=== PATIENT | female | born 1980 | race Caucasian/White ===

== ENCOUNTER 2017-01-18 17:25 | Emergency (ER) | payer MEDICAID ==
[~2017-01-18 17:25] MED LIST: SERT100T PO
[2017-01-18] MEDS ORDERED: IBUPROFEN 600 MG TABLET PO ONE (19:02)
== END 2017-01-18 19:13 | disposition home or self-care (01) ==
LOC: ER 17:30
DX: S93.401A Sprain of unspecified ligament of right ankle, initial encounter (principal); Z88.0 Allergy status to penicillin; Z90.89 Acquired absence of other organs; Z88.5 Allergy status to narcotic agent; W22.8XXA Striking against or struck by other objects, initial encounter; Y93.89 Activity, other specified; Y92.89 Other specified places as the place of occurrence of the external cause; Y99.8 Other external cause status
CPT/HCPCS: 73610-TC

== ENCOUNTER 2017-08-19 17:41 | Emergency (ER) | payer BC ==
[~2017-08-19] VITALS: Ht 154.9 cm; Wt 59.0 kg
--- NOTE | 2017-08-19 19:35 | NUR ---
PT TO ER BED
--- NOTE | 2017-08-19 19:43 | NUR ---
URINE SAMPLE OBTAINED AND SENT TO LAB.
[2017-08-19 20:06] LABS: APPEARANCE,URINE Clear (CLEAR); BILIRUBIN,URINE Negative (NEGATIVE); BLOOD, URINE Moderate Ery/uL (NEGATIVE); COLOR,URINE Yellow (YELLOW); KETONES,URINE Negative (NEGATIVE); LEUKOCYTE ESTERASE ,URINE Negative (NEGATIVE); NITRITE, URINE Negative (NEGATIVE); PH,URINE 7.5 (5.0-8.0); PROTEIN,URINE Negative (NEGATIVE); UGLUCOSE Negative (NEGATIVE); UROBILINOGEN,URINE 0.2 EU/dL (0.2)
[2017-08-19 20:29] LABS: BACTERIA,URINE Rare /HPF (None Seen); SQUAMOUS EPITHELIAL CELL,UR Few /HPF (None Seen); WBC,URINE 0-2 /HPF (0-3)
[2017-08-19] MEDS ORDERED: IV NS 0.9% 1,000 ML BAG IV ONE (20:30)
[2017-08-19] MEDS ORDERED: KETOROLAC TROMETHAMINE INJ 30 MG/ML VIAL IV ONE (20:30)
--- NOTE | 2017-08-19 20:36 | NUR ---
PT IS IN CT
[2017-08-19 21:06] LABS: BASOPHILS # (AUTO) 0.1 /CMM (0.0-0.2); EOSINOPHILS # (AUTO) 0.8 /CMM (0.0-0.7); HEMATOCRIT 34 % (33-45); HEMOGLOBIN 11.6 g/dL (11.5-14.8); LYMPHOCYTES # (AUTO) 2.3 /CMM (0.8-4.8); LYMPHOCYTES % (AUTO) 37.5 % (20.0-44.0); MEAN CORPUSCULAR HEMOGLOBIN 27 PG (26.0-33.0); MEAN CORPUSCULAR HGB CONC 34 g/dl (31.0-36.0); MEAN CORPUSCULAR VOLUME 80 fL (82-100); MONOCYTES # (AUTO) 0.5 /CMM (0.1-1.30); MONOCYTES % (AUTO) 7.8 % (2.0-12.0); NEUTROPHILS # (AUTO) 2.4 /CMM (1.8-8.9); NEUTROPHILS % (AUTO) 39.7 % (43.0-81.0); PLATELET COUNT (AUTO) 253 /CMM (150-450); RDW COEFFICIENT OF VARIATION 13.4 (11.5-15.0); RED BLOOD CELL COUNT(AUTO) 4.27 MIL/uL (4.0-5.2); WHITE BLOOD COUNT (AUTO) 6.1 K/uL (4.3-11.0)
[2017-08-19] MEDS ORDERED: KETOROLAC TROMETHAMINE 15 MG/ML VIAL ONE (21:09)
[2017-08-19 21:17] LABS: CALCIUM, SERUM 8.8 mg/dL (8.5-10.1); CREATININE 0.8 mg/dL (0.6-1.3); POTASSIUM 3.9 mmol/L (3.5-5.1)
[2017-08-19 21:23] LABS: ALBUMIN 3.5 g/dL (3.4-5.0); BILIRUBIN,TOTAL 0.2 mg/dL (0.2-1.0); TOTAL PROTEIN, SERUM 7.5 g/dL (6.4-8.2)
--- NOTE | 2017-08-19 22:44 | NUR ---
IV removed. Catheter intact and site benign. Pressure and 4x4 applied to site. No bleeding noted.Patient discharged to home in stable condition. Written and verbal after care instructions given. Patient verbalizes understanding of instruction AND RX. PT AMBULATED OUT WITH A STEADY GAIT. VSS.
[2017-08-19 22:45] VITALS: BP 105/59
== END 2017-08-19 22:46 | disposition home or self-care (01) ==
LOC: ER 17:42
DX: R10.32 Left lower quadrant pain (principal); Z88.6 Allergy status to analgesic agent; Z88.5 Allergy status to narcotic agent; Z88.0 Allergy status to penicillin; Z90.89 Acquired absence of other organs
CPT/HCPCS: 36415; 74176; 80053; 81001; 83690; 85025; 96361; 96374; 99285; A4606; J1885; J7030; Z7610; 81000-TC

== ENCOUNTER 2018-05-11 14:16 | Emergency (ER) | payer BC ==
[~2018-05-11] VITALS: Ht 160 cm; Wt 59.0 kg
--- NOTE | 2018-05-11 18:00 | NUR ---
BIB SELF, WITH C/O R SIDED HEADACHE WITH BLURRY VISION SINCE THIS MORNING. TO ER BED 4, HOOKED TO MONITOR, AWAITING MD ALFARO
--- NOTE | 2018-05-11 18:03 | NUR ---
JOY DIAZ AT BEDSIDE
[2018-05-11] MEDS ORDERED: KETOROLAC TROMETHAMINE INJ 30 MG/ML VIAL ONE (18:18)
[2018-05-11] MEDS ORDERED: BENZTROPINE MESYLATE (2MG/2ML) 2 MG/2 ML AMPUL ONE (18:18)
[2018-05-11] MEDS ORDERED: METOCLOPRAMIDE HCL 10 MG/2 ML VIAL ONE (18:20)
--- NOTE | 2018-05-11 18:23 | NUR ---
PT OUT FOR CT, WAIVER SIGNED, DENIES
[2018-05-11] MEDS ORDERED: IV NS 0.9% 1,000 ML BAG IV ONE (18:30)
[2018-05-11] MEDS ORDERED: BENZTROPINE MESYLATE (2MG/2ML) 2 MG/2 ML AMPUL IVP ONE (18:30)
[2018-05-11] MEDS ORDERED: METOCLOPRAMIDE HCL 10 MG/2 ML VIAL IV ONE (18:30)
[2018-05-11] MEDS ORDERED: KETOROLAC TROMETHAMINE INJ 30 MG/ML VIAL IV ONE (18:30)
--- NOTE | 2018-05-11 19:14 | NUR ---
ENDORSEMENT GIVEN TO CATHY MADDEN
[2018-05-11 19:46] VITALS: BP 150/74
== END 2018-05-11 19:46 | disposition home or self-care (01) ==
LOC: ER 14:29
DX: G43.109 Migraine with aura, not intractable, without status migrainosus (principal); Z90.89 Acquired absence of other organs; Z88.5 Allergy status to narcotic agent; Z88.0 Allergy status to penicillin; Z88.6 Allergy status to analgesic agent
CPT/HCPCS: 70450; 96374; 96375; 99284; A4606; J0515; J1885; J2765; J7030; Z7610

== ENCOUNTER 2019-06-30 16:22 | Emergency (ER) | payer BC, MEDICAID ==
[~2019-06-30] VITALS: Ht 157.5 cm; Wt 59.9 kg
[2019-06-30 16:39] VITALS: BP 128/77
[2019-06-30] MEDS ORDERED: IBUPROFEN 600 MG TABLET PO ONE ×2 (17:00→18:04)
== END 2019-06-30 18:07 | disposition home or self-care (01) ==
LOC: ER 16:22
DX: S93.491A Sprain of other ligament of right ankle, initial encounter (principal); Z90.89 Acquired absence of other organs; Z88.6 Allergy status to analgesic agent; Z88.5 Allergy status to narcotic agent; Z88.0 Allergy status to penicillin; Z79.899 Other long term (current) drug therapy; X50.1XXA Overexertion from prolonged static or awkward postures, initial encounter; Y93.89 Activity, other specified; Y92.89 Other specified places as the place of occurrence of the external cause; Y99.8 Other external cause status
CPT/HCPCS: 73610-TC

== ENCOUNTER 2022-06-02 16:41 | Emergency (ER) | payer BC, MEDICAID ==
[~2022-06-02] VITALS: Ht 154.9 cm; Wt 65.3 kg
[2022-06-02 16:57] VITALS: BP 156/78
[2022-06-02] MEDS: ACETAMINOPHEN ES 500 MG TABLET PO ONE (17:30)
[2022-06-02] MEDS: IBUPROFEN 600 MG TABLET PO ONE (17:30)
[2022-06-02] MEDS ORDERED: ACETAMINOPHEN ES 500 MG TABLET ONE (18:40)
[2022-06-02] MEDS ORDERED: IBUPROFEN 600 MG TABLET ONE (18:41)
[2022-06-02] MEDS ORDERED: CLIN300C12 PO (19:16)
[2022-06-02] MEDS ORDERED: NAPR-1164 PO (19:16)
== END 2022-06-02 19:30 | disposition home or self-care (01) ==
LOC: ER 16:50
DX: M79.645 Pain in left finger(s) (principal); Z88.0 Allergy status to penicillin; Z88.5 Allergy status to narcotic agent; Z90.49 Acquired absence of other specified parts of digestive tract
CPT/HCPCS: 73140-TC

== ENCOUNTER 2022-07-19 15:31 | Emergency (ER) | payer MEDICAID ==
[~2022-07-19] VITALS: Ht 162.6 cm; Wt 61.2 kg
[~2022-07-19 15:31] MED LIST changes: +CLIN300C12 PO; +NAPR-1164 PO
[2022-07-19] MEDS ORDERED: BENZONATATE 100 MG CAPSULE PO PRN (16:00)
[2022-07-19] MEDS ORDERED: BENZONATATE 100 MG CAPSULE PO ONE (16:09)
[2022-07-19] MEDS ORDERED: ALBU18HF2 INH (16:45)
[2022-07-19] MEDS ORDERED: BENZ-13 PO (16:45)
[2022-07-19 18:01] VITALS: BP 174/102
--- NOTE | 2022-07-19 18:01 | NUR ---
Patient discharged to home in stable condition. Written and verbal after care instructions given by ER provider MD Dougherty Patient verbalizes understanding of instruction.
== END 2022-07-19 18:01 | disposition home or self-care (01) ==
LOC: ER 15:36
DX: R05.9 Cough, unspecified (principal); Z90.49 Acquired absence of other specified parts of digestive tract; Z88.0 Allergy status to penicillin; Z88.5 Allergy status to narcotic agent; Z79.899 Other long term (current) drug therapy
CPT/HCPCS: 71045-TC